=== PATIENT | male | born 1955 | race Caucasian/White ===

== ENCOUNTER 2024-01-20 17:57 | Emergency (ER) | payer MEDICARE, OTHER, SELFPAY ==
[2024-01-20 17:58] VITALS: BMI 22.5
[2024-01-20 18:00] VITALS: BP 122/80
[2024-01-20 18:25] LABS: % Basophils 0.5 % (0-2); % Eosinophils 1.7 % (0-6); % Immature Granulocytes 0.3 % (0-0.5); % Lymphocytes 31.6 % (20.5-51.1); % Monocytes 12.9 % (1.7-9.3); Absolute Eosinophils 0.1 10^3/uL (0-0.7); Absolute Lymphocytes 1.9 10^3/uL (1.2-3.4); Absolute Monocytes 0.8 10^3/uL (0.1-0.6); Absolute Neutrophils 3.2 10^3/uL (1.4-6.5); Hematocrit 38.1 % (39.0-52.0); Hemoglobin 13.4 g/dL (13.0-18.0); Mean Corp Hgb Conc. 35.2 g/dL (33.0-37.0); Mean Corpuscular Hgb 30.1 pg (27.0-31.0); Mean Corpuscular Volume 85.6 fL (80.0-94.0); Mean Platelet Volume 9.4 fL (7.4-10.4); Nucleated Red Blood Cells % 0 % (-); Platelet Count 259 10^3/uL (130-400); Red Blood Cell Count 4.45 10^6/uL (4.70-6.10); Red Cell Dist. Width 13.2 % (11.5-14.5)
[2024-01-20 18:40] LABS: Amphetamines Negative (Negative); Barbiturates Negative (Negative); Benzodiazepines Negative (Negative); Buprenorphine Negative (Negative); Cocaine Negative (Negative); Marijuana Negative (Negative); Methadone Negative (Negative); Methamphetamines Negative (Negative); Opiates Negative (Negative); Phencyclidine Negative (Negative); Tricyclic Antidepressants Negative (Negative)
[2024-01-20 18:51] LABS: ALT (SGPT) 15 U/L (0-50); AST (SGOT) 22 U/L (17-59); Albumin 4.3 g/dl (3.5-5.0); Alcohol None Detected; Alkaline Phosphatase 115 U/L (38-126); Blood Urea Nitrogen 13 mg/dl (9-20); Calcium 9.6 mg/dl (8.4-10.2); Carbon Dioxide 28 mmol/L (22-30); Chloride 92 mmol/L (98-107); Glucose 467 mg/dl (70-99); Potassium 4.9 mmol/L (3.5-5.1); Sodium 130 mmol/L (135-145); Total Bilirubin 0.5 mg/dl (0.2-1.3); Total Protein 6.8 g/dl (6.3-8.2); eGFR > 60.00
[2024-01-20 20:00] VITALS: BP 119/74
[2024-01-20] MEDS: NOVOLOG vial 12 UNITS SC (20:01)
[2024-01-20] MEDS: NSS 1000 IV (20:12)
[2024-01-20 21:07] LABS: Glucose - Point of Care 305 mg/dl (70-99)
--- NOTE | 2024-01-20 21:26 | ED.GENMED ---
History of Present Illness
General
Chief Complaint: Psychiatric Problem
Time Seen by Provider: 01/20/24 19:15
History of Present Illness
History of Present Illness:
68-year-old male with history of [id number] diabetes presents to the emergency department for evaluation of of suicidal ideation. Initially presented to [facility] due to verbalized thoughts of self-harm however due to his
uncontrolled diabetes was deferred to the emergency department for medical workup. He states to me that due to depressed thoughts lately he has contemplated 'blowing my head off with my shotgun'. He is here with his daughter and sister with whom
he has conveyed these thoughts. Patient does have some cognitive deficits and memory issues and this is apparently contributed to his poor medical compliance. He is apparently recommended to start on insulin for his diabetes but is declined,
currently managed on metformin, glimepiride, and Januvia. He also takes atorvastatin for hyperlipidemia. He was apparently admitted to the [facility] within the past month at which time he had a hemoglobin A1c of 13.7
Review of Systems
Review of Systems
Allergies reviewed?: Yes
All Other Systems: ROS reviewed and negative except as documented in HPI and ROS
Phy Exam
Physical Exam
Physical Exam:
GEN: Well appearing, NAD, WDWN
HEENT: Oral mucosa moist, no scleral icterus
Cardiac: Regular rate
Lung: No respiratory distress, no tachypnea
MSK: No gross deformity or injuries
Skin: Good color, no pallor or jaundice, no rashes
Neuro: AO x3, moves all extremities freely
Psych: Calm, cooperative
Course
Orders/Labs/Results
Orders:
Orders
01/20/24 18:06
Electrocardiogram (*1) Urgent
Reason for Study: Other
Other Reason for Exam: medical clearence
01/20/24 18:07
EKG- Treatment ONCE
01/20/24 18:19
Alcohol Urgent
Complete Blood Count/With Diff Urgent
Comprehensive Metabolic Panel Urgent
Urine Drug Abuse Screen Urgent
Date Specimen was Collected: 01/20/24
Time Specimen was Collected: 18:07
01/20/24 19:51
0.9% Sodium Chloride 1000 ml [Nss] 1,000 ml IV BOLUS
Insulin Aspart [NOVOLOG vial] 12 units SC NOW STA
01/20/24 21:00
Bedside Glucose- Treatment ONCE
01/20/24 21:09
Dextrose 50%-Water [Dextrose 50% Syringe] 12.5 grams IV [id number] PRN
Glucagon [GlucaGen] 1 mg IM PRN PRN
01/21/24 Breakfast
1800 calorie (15 carb) Diabetic
At Your Request: Full Participation
01/21/24 06:13
Glycohemoglobin (HgbA1c) IN AM
01/21/24 07:30
Insulin Aspart Corrective Low [Novolog Flexpen-Low Resistance] See Protocol SC AC
01/21/24 08:00
METFORMIN HCl [Glucophage] 1,000 mg PO BID@0800,1700
01/21/24 10:23
PSYCHIATRY CONSULT Urgent
Consulting Provider: Portia Hardy
Was physician already notified: Yes
Reason for consult: psychosis
01/21/24 12:49
Insulin Aspart [NOVOLOG vial] 5 units SC NOW STA
01/21/24 13:00
Insulin Glargine Lantus [Lantus] 12 units Subcutaneous Insulin Syringe [Syringe-Insulin] 0 unit SC DAILY
01/21/24 16:30
Insulin Regular, Human Pen [NovoLIN R Flexpen] 4 units SC AC
01/21/24 17:04
Case Management Consult ONCE
Case Management Consult: Discharge Planning
Requested By:: PHYSICIAN
Tentative Discharge Date: 01/21/24
01/21/24 17:33
Case Management Consult ONCE
Case Management Consult: Discharge Planning
Abnormal Lab Results
01/20/24 01/20/24 01/20/24
18:19 21:06 23:40
RBC 4.45 L 10^6/uL
(4.70-6.10)
Hct 38.1 L %
(39.0-52.0)
Absolute Monos (auto) 0.8 H 10^3/uL
(0.1-0.6)
Monocytes % 12.9 H %
(1.7-9.3)
Sodium 130 L mmol/L
(135-145)
Chloride 92 L mmol/L
(98-107)
Glucose 467 H* mg/dl
(70-99)
Hemoglobin A1c
POC Glucose 305 H mg/dl 181 H mg/dl
(70-99) (70-99)
01/21/24 01/21/24 01/21/24
06:13 11:06 12:48
RBC
Hct
Absolute Monos (auto)
Monocytes %
Sodium
Chloride
Glucose
Hemoglobin A1c 13.2 H %
(4.0-5.6)
POC Glucose 307 H mg/dl 326 H mg/dl
(70-99) (70-99)
01/20/24 18:19
01/20/24 18:19
Vital Signs
Initial and Last Documented VS:
Initial Vital Signs
Pulse Resp BP Pulse Ox
81 20 122/80 95
01/20/24 18:00 01/20/24 18:00 01/20/24 18:00 01/20/24 18:00
Last Documented Vital Signs
Temp Pulse Resp BP Pulse Ox
98.5 F 82 16 105/63 97
01/21/24 11:18 01/21/24 11:18 01/21/24 11:18 01/21/24 11:18 01/21/24 11:18
MDM/Problems Addressed
MDM/Problems Addressed:
Patient is medically cleared for inpatient psychiatric admission and crisis placement however due to his need for insulin and his lack of prior medical compliance, he is not suitable to be managed outside of the emergency department. Will remain in
the ER while awaiting crisis placement. Sliding scale insulin started
*Critical Care Note
Total Time (30-74mins, 75-104mins- exclusive of procedures): Not Applicable
ED Attending Note
-
Portions of this chart may have been created with voice recognition software.� Occasional wrong word or��sound alike� substitutions may have occurred due to the inherent limitations of voice recognition software.
Discharge Plan
Departure
Patient Disposition: Psych Facility
Date of Disposition: 01/20/24
Time of Disposition: 21:26
Discharge Problem:
Depression with suicidal ideation, Uncontrolled diabetes mellitus
Prescriptions:
No Action
No Current Medications
0
Rx Instructions:
the pt refuses to take any prescriptions medications, provider notified
Referrals:
Samson Borges MD [Family Provider] -
Interventions
Interventions:
*Risk Screen - Suicide Last Done: 01/20/24 18:00
*General Assessment Last Done: 01/20/24 18:00
*Neglect/Abuse Screening Last Done: 01/20/24 18:00
ED- Fall Risk Assessment Last Done: 01/20/24 23:04
*ED COVID-19 Vaccine History Last Done: 01/21/24 09:35
ED-Psychological Assessment Last Done: 01/20/24 23:04
Discharge Date and Time
Print Language: WALLISIAN
[2024-01-20 23:05] VITALS: BP 100/67
[2024-01-20] MEDS: NOVOLOG FLEXPEN-LOW RESISTANCE 1 UNITS SC (23:41)
[2024-01-20 23:48] LABS: Glucose - Point of Care 181 mg/dl (70-99)
[2024-01-21 06:31] VITALS: BP 107/70
--- NOTE | 2024-01-21 08:52 | EDRN ---
the pts breakfast arrived and this RN brought the pt his breakfast, the pt was sleeping however this RN woke the pt up be stating that hsi breakfast was here, the pt told the hourly shift manager RN that he wanted to be woken up when his breakfast arrived,
the pt stated, 'Just put it on the table and put my side rail down i want to sit on the side of the bed', this RN put the pts side rail down and waited for the pt to sit on the side of the bed, the pt then stated, 'What are you doing i don't want
that put it over my legs, i am not getting out of bed right now, i am staying in bed to eat my breakfast', this RN apologized to the pt however this RN stated that this RN was just doing what the pt asked, the pt then stated to this RN, 'Just do
what i said and get out, i don't want you in here', this RN asked the pt if this RN could check his blood sugar before he ate so that this RN could see if the pt needed insulin or not, the pt then stated, 'Just get the fuck out, i don't need insulin
and i don't need the rest of the shit you people try to poison me with', this RN attempted to explain to the pt that medication compliance was important for the pts overall health and the pt stated to this RN, 'I said get out, i don't have to take
it and i won't take it, my blood sugar is fine, i don't check my blood sugars at home and i am not checking them here', the pt then proceeded to throw an empty cup across the room, the provider Dr. Moore was notified, this RN provided the pt his
breakfast on the breakfast tray so that he could stay in bed and eat, no s/s of distress, this RN notified security that the pt was upset and irritated and asked security to come by to speak to the pt about speaking to staff appropriately and
respectfully and the pt was notified that aggressions toward staff that aggression is not tolerated, the pt refused to allow this RN to take the pts vital signs again, will continue to monitor the pt closely
--- NOTE | 2024-01-21 09:31 | EDRN ---
the pts daughter was brought back to the nurses station for an update on the pt, this RN updated the pts daughter, the pt is running down to the cafateria then coming back to the pts room
[2024-01-21] MEDS: GLUCOPHAGE PO (09:32)
--- NOTE | 2024-01-21 09:32 | EDRN ---
the pt refused AM medications, provider notified
--- NOTE | 2024-01-21 09:34 | EDRN ---
Dr. Moore currently at the pts bedside speaking with the pt regarding blood sugar checks and taking medications as prescribed
--- NOTE | 2024-01-21 09:35 | EDRN ---
the pt stated to Dr. Moore that after he was done his breakfast he would allow this RN to check his blood sugar
--- NOTE | 2024-01-21 10:17 | EDRN ---
crisis called this RN and asked this RN if a psychiatry consult was going to be placed for the pt, crisis stated that they spoke to someone last night and they were going to put a psychiatry consult in for today, this RN will notify Dr. Moore
--- NOTE | 2024-01-21 10:23 | EDRN ---
this RN spoke with Dr. Moore and a Psychiatry consult was placed for psychosis, this RN notified crisis
[2024-01-21 11:07] LABS: Glucose - Point of Care 307 mg/dl (70-99)
--- NOTE | 2024-01-21 11:08 | EDRN ---
the pts blood sugar was 307, Dr. Moore notified
[2024-01-21 11:15] VITALS: BP 105/63
[2024-01-21 11:18] VITALS: BP 105/63
--- NOTE | 2024-01-21 11:19 | EDRN ---
the pt pressed the call cornejo and this RN entered the pts room, the pt asked this RN to lower the head of his bed, this RN lowered the pts HOB to his liking, this RN asked the pt if he would be agreeable to this RN taking his vital signs and the pt
was agreeable to this, the pt is calm, pleasant, and cooperative, while this RN was taking the pts vital signs the pts daughter stated, 'He isn't here for a blood pressure problem he is here for diabetes and psych issues', this RN notified the pts
daughter that this RN was aware of that and that although that may be the case, this RN still has to check the pts vital signs during his stay here in the hospital, the pts daughter stated, 'Okay i was just letting you know because i just don't know
what his blood pressure has to do with the issues he is having here', this RN again educated the pts daughter that it is standard practice to check patients vital signs while they are in the hospital and this RN notified the pts daughter that this
RN was aware of the reasoning for the pt being here in the hospital, the pts daughter also asked when a psychiatrist was going to evaluate the pt, this RN notified crisis, the pt is currently resting in stretcher in the lowest position, side rails
up x1, HOB lower than before, and call cornejo within reach, this RN asked the pt if he would be okay with letting this RN know when he orders his lunch and this RN asked the pt if it would be okay if this RN checks his blood sugar before he eats his
lunch to see if he need insulin, the pt stated that he was okay with that, this RN offered the pts his AM dose of Glucophage again and the pt refused, will continue to monitor the pt closely
[2024-01-21 11:53] LABS: Glycohemoglobin (HgbA1c) 13.2 % (4.0-5.6)
--- NOTE | 2024-01-21 12:36 | EDRN ---
the pts daughter came out of the pts room and approached this RN at the nurses station, the pts daughter was asking if there was a bathroom that she could use, this RN notified the pts daughter that there is a bathroom in the pts room and that she
could use that, the pts daughter also notified this RN that the pt is ordering lunch now, will continue to monitor the pt closely
[2024-01-21 12:49] LABS: Glucose - Point of Care 326 mg/dl (70-99)
[2024-01-21] MEDS: NOVOLOG FLEXPEN-LOW RESISTANCE 4 UNITS SC ×2 (12:51→18:04)
--- NOTE | 2024-01-21 12:53 | ED.CRISIS ---
ED Crisis Note
ED Crisis Note
Subjective:
Pt calm but not cooperative at times with accu-check and taking meds.
No complaints at present
Objective:
Very thin. Calm
Assessment/Plan:
Discussed a treatment regimen with [employer]....we will start 12 units of Lantus a day and low correction. She is happy to review pt's response to this regimen tomorrow
Awaiting placement
--- NOTE | 2024-01-21 12:56 | EDRN ---
this RN entered the pts room and this RN asked the pt if he would be okay with this RN checking his blood sugar, the pt was agreeable to this, the pt is being calm, cooperative, and pleasant, due to the pts blood sugar the pt required coverage
before eating, the pt was agreeable to this, this RN administered coverage insulin and the pt tolerated, Dr. Moore had put a one time order in for 5 units of Novolog however this RN notified him that a sliding scale had been ordered, 5 units
Novolog order was discontinued and Dr. Moore ordered long acting insulin for the pt, this RN notified the pt and the pts daughter, the pt is agreeable to taking long acting insulin, Dr. Moore notified this RN to sign out to date night caregiver that
Elizabeth the certified lactation educator stated to him that if she is here tomorrow she will evaluate the pt, will continue to monitor the pt closely
--- NOTE | 2024-01-21 12:59 | EDRN ---
this RN called pharmacy to send the Lantus to this RN to administer to the pt
[2024-01-21] MEDS: LANTUS 0.12 UNITS SC (13:15)
--- NOTE | 2024-01-21 13:16 | EDRN ---
this RN administered Lantus and the pt tolerated it well
--- NOTE | 2024-01-21 13:41 | EDRN ---
psychiatrist is currently at the pts bedside speaking with the pt and the pts daughter
--- NOTE | 2024-01-21 14:00 | EDRN ---
the pt pressed the call cornejo and stated that he wanted the rest of his lunch heated up, the PCT Caridad heated up his lunch
--- NOTE | 2024-01-21 14:09 | EDRN ---
the pt pressed the call cornejo and PCT Bahman entered the pts room, the pt stated that he wanted a diet soda, diet latisha julien was provider for the pt, the pt denies needing anything else at this time, will continue to monitor the pt closely
--- NOTE | 2024-01-21 15:27 | CON.MD ---
Consultation - Medical
-
68 yo male, initially presented to crisis at the behest of his daughter (who accompanies him) for concerns of depression and his making suicidal statements. The patient did admit to cellar worker that he at times has passive thoughts of not wanting
to wake up, and that he has had time of thinking of 'shooting myself' but denied having any intention to do so and expressed that these were just thoughts he has when he is feeling down. He does have a gun in the home which he has had for many
years.
Pt was later seen in the ER for management of his DMT2 - HgA1c 13.1, started on Lantus. Psychiatry consulted as daughter reports ongoing concerns about pt's mental health.
Spoke to daughter alone initially with pt verbal consent - she reports that he has been gradually cognitively declining for some time - was put on donepezil at one point, though does not seem to be taking it nor is daughter aware of the type of
dementia he was suspected to have. She also reports long hx of hoarding, which is affecting his living conditions - says he has fridge full of food, and boxes and items lined to ceiling all over apartment. She reports that he has been
depressed and making statements of not wanting to wake up in the morning. She does note that he has a shotgun which he had for many years that she thought was an antique, however yesterday when she asked him about it he said it does work and became
upset with her line of questioning. She does also note that passive statements started a few weeks ago. To note, he has been hospitalized medically 3 times in past 12 weeks for DM due to poor med compliance and lack of self care.
Pts daughter also reports that he told her he is not eating much due to lack of access from hoarding (and possibly cognitive issues preventing his buying or using the appropriate groceries). She notes as well that he has not been attending to his
hygiene - has been increasingly more malodorous and not washing his clothing (which may likely be due to difficulty accessing shower and laundry). He did have someone from [facility] come to the home several times and evaluate his
conditions - is currently on a waiting list for the [facility] hoarding program which offers treatment and support services. He was hoping to start an outpatient program called [facility] but was denied because staff was unable to
access home easily and he is required to remove the boxes in the entry way prior to staff entering (though does not seem that they offered any help with achieving this).
Spoke to pt one on one and then with daughter present. He admits to feeling depressed, in particular since his 3.5 yrs ago - says some days are better than others. Admits to passive thoughts at times and admits to statement he told
crisis about shooting self, however says these are fleeting thoughts and he would never consider this seriously - 'that's life, you can't just give up like that! you just keep going and hope that things eventually get better'. Future oriented to
being there for his daughter and rest of family, also future oriented to starting an outpatient program as he did find therapy immensely helpful when he was younger. He admits that he is eating poorly because of inability to cook, so options are
limited (noted to struggle trying to name what he eats when home). Also admits to difficulty with self care, partially likely due to difficulty with accessing parts of home (and quite possibly partially due to depression).
Difficult to clearly gauge extent of cognitive difficulties due to his becoming irritable when asked more than a few questions - he does understand his having DMT2 and that his current metformin is not adequate, however has difficulty discussing
other options without becoming irritable.
MSE: male, fair eye contact, somewhat cooperative. Mood is OK, affect is at times irritable. Denies SI/HI/AVH/delusions. Thought process is perseverative at times. Oriented to name however too irritable to orient further. Insight/judgement moderate
- certain aspects of insight, in particular, poor relating to hoarding, otherwise.
Suspected hoarding d/o
Unspecified depression
Pt agreeable to voluntary inpatient admission for stabilization - bed search pending
- while his hoarding is a chronic issue best managed on an outpatient basis, it does seem that over past several months he has been more depressed than previously, worsening ADLs, worsening intake.Unclear baseline of cognition, however given pt
presenting with what appears to be worsening depression, suspect that his depression is contributing to his worsening ADLs and current inability to adequately care for himself. He is not open to medication at this time so would defer medication
trial for the time being
--- NOTE | 2024-01-21 15:33 | EDRN ---
the pts daughter came out to the nurses station and approached this RN, the pts daughter stated, 'I am getting frustrated with him so i feel that it is best that i leave', this RN stated to the pts daughter that is is okay to go home and this RN
also asked the pts daughter when the last time the pt saw his PCP was, the pts daughter stated that he last saw his PCP a month ago however the pts daughter stated, 'I have been through this with them, i told them he needs to be in assisted living',
this RN notified crisis who will speak to the psychiatrist
--- NOTE | 2024-01-21 15:46 | CM ---
CM reviewed medical records. CM spoke with long term care social worker and offered home care for management of patient's diabetes. CM spoke with patient and he stated that he feels that he is not ready for discharge and he is 'going to rehab'. He was agreeable
to home care, but he stated that he's not ready for discharge.
CM updated crisis.
--- NOTE | 2024-01-21 16:26 | EDRN ---
the pt came out of ED Bed #9 and approached this RN at the nurses station, the pt stated to this RN, 'Can you help me? I am in room #9 right? I am on the phone with the kitchen and they're saying that they can't give me a lunch tray', this RN
entered the pts room and picked up the phone to speak to the kitchen, this RN confirmed that the pt is in ED Bed #9 and restated and spelled the pts name and they were able to find the pt in the system and the pt was able to order his lunch, will
continue to monitor the pt closely
--- NOTE | 2024-01-21 16:57 | EDRN ---
psychiatrist currently at the pts bedside speaking with the pt
--- NOTE | 2024-01-21 17:06 | EDRN ---
the psychiatrist came out of the pts room and notified this RN that the pt stated that he didn't want to go home and Dr. Hardy notified the pt and this RN that the pt is cleared psych mcnally, the pt stated to the psychiatrist, 'I don't want to go
home i want to go to a residential', the psychiatrist stated to this RN to place an order for a case management consult, the assistant case manager Alayna stated that she would call the pts daughter and discuss the options for the pt, and the psychiatrist is
also going to call the pts daughter, will continue to monitor the pt closely
--- NOTE | 2024-01-21 17:23 | CM ---
CM was consulted for assistance with disposition. As per psychiatry, patient is ready for discharge. Patient has told nurse that he wants to go to rehab. Also, as per daughter, she wants him placed in SNF. Patient disposition to SNF would be
complicated by psychiatric history and payment options. Patient does have a home that he can return to, but he has had challenges with hoarding. As per psychiatry, patient has been connected with APS and patient reports that he is on a waiting list
for assistance. Patient is also refusing to take insulin.
Plan for home discharge with VN. CM sent referral via [facility] to [facility] care. CM will place call to protective services to follow up with home discharge plan.
--- NOTE | 2024-01-21 17:30 | EDRN ---
Alayna from case management is currently still working on the pts case, the pts daughter called to speak with this RN and the pts daughter stated to this RN, 'I can't believe they want to sent him home and can't help him, he needs to be taken care
of, he doesn't given himself medications because he won't stick himself with a needle, I can't let him go home alone, he won't give himself his medications, and now he is saying that she doesn't want to go home either', this RN explained to the pts
daughter that Alayna from case management was working on the pts case and will follow up with her
[2024-01-21 17:58] VITALS: BMI 22.7
[2024-01-21 18:02] LABS: Glucose - Point of Care 335 mg/dl (70-99)
[2024-01-21] MEDS: GLUCOPHAGE 1000 MG PO (18:09)
--- NOTE | 2024-01-21 18:12 | EDRN ---
case management and psychiatry are currently at the pts bedside speaking with the pt
--- NOTE | 2024-01-21 18:14 | EDRN ---
Case management is on the phone with the pts daughter
--- NOTE | 2024-01-21 18:14 | EDRN ---
the pt was compliant with this RN checking his blood sugar, he was compliant with administering his insulin before his dinner and he was compliant with taking glucophage, the pt is now resting in stretcher in the lowest position, side rails up x1,
HOB elevated, no s/s of distress, the pt is eating his dinner, the pt stated to this RN, 'I could never stick myself with a needle i could just never do it', will continue to monitor the pt closely
[2024-01-21 18:15] VITALS: BP 137/71
--- NOTE | 2024-01-21 18:16 | EDRN ---
Alayna from case management approached this RN and updated this RN and stated that the pt and the pts daughter are agreeable to inpatient psych on a 201 and crisis will be taking over
--- NOTE | 2024-01-21 18:24 | CM ---
Addendum entered by Alayna Qureshi RN 01/21/24 18:32:
CM updated beef cattle farm worker that patient's daughter would prefer [facility]. But she would be agreeable to [facility]. She stated that she had a bad experience at [facility] but would be agreeable if no
other bed was found.
Original Note:
CM spoke with crisis regarding disposition efforts. CM spoke with patient's daughter at length regarding her concerns and patient's history of self neglect over the last 10 months. Daughter stated that she believes that her father is agreeable to
inpatient psychiatric placement . Patient's daughter was reluctant to sign a 302 because she felt it was 'too aggressive' and did not want to upset her father. CM advised that she may have to sign a 302 if patient refuses. Patient daughter did
express understanding.
CM met with patient in room with psychiatrist. Patient expressed that he would agreeable to inpatient psychiatric placement, but wanted to speak to his daughter first. CM advised that this CM spoke with his daughter at length and she was working on
calling different facilities for placement. Patient understood and she stated that 'if my daughter thinks it's a good idea, I'll go get help'.
CM updated crisis. CM updated daughter that crisis will look for a bed. Patient's daughter was tearful but expressed relief. She did state that she was willing to sign a 302 if needed.
CM updated bedside RN.
--- NOTE | 2024-01-22 07:03 | EDRN ---
the pt was received from previous client delivery manager RN, the pt is currently sleeping in stretcher in the lowest position, side rails up x1, HOB elevated, call cornejo within reach, no s/s of distress, per crisis, before the pt gets transferred a blood sugar
is to be performed, will continue to monitor the pt closely
[2024-01-22 07:10] VITALS: BP 141/82
[2024-01-22 08:01] LABS: Glucose - Point of Care 227 mg/dl (70-99)
--- NOTE | 2024-01-22 08:20 | EDRN ---
the pt gave this RN his breakfast order and this RN called the kitchen and ordered it
--- NOTE | 2024-01-22 08:44 | EDRN ---
the pt pressed the call cornejo and this RN and PCT Isa entered the pts room, the pt was found on the phone with the kitchen and the pt was asking if he could have a cup of coffee, this RN stated to the pt that this RN already ordered his breakfast
and that the kitchen would deliver his breakfast around 9am, will continue to monitor the pt closely
--- NOTE | 2024-01-22 09:07 | EDRN ---
Alayna from case management and crisis notified this RN that the pts daughter called and is 'infuriated' that crisis didn't call her to tell her that placement was found for the pt at [facility], this RN called crisis and crisis notified this RN that
placement was found at 2039 last night on 01/22/2024, this RN called the daughter and the pts daughter picked up the phone and stated that she was on her way to the hospital and was confused why she was told the possible placement facilities were
[facility], [place], or [facility], but didn't understand why the pt was being placed in [facility], the pts daughter wants to know why he wasn't placed at one of the three options and why he was being placed at [facility] and
wants to know if crisis tried the three options first, the pts daughter stated, 'I am on my way to advocate for him, crisis never called me last night to confirm anything with me and i was never told anything about [facility] and i just don't understand
why he was going to be placed there, please cancel the transport i don't want him going there, i want to speak to you, ori, and Alayna, i will be there shortly', this RN assured the pts daughter that the situation would be handled
[2024-01-22] MEDS: NOVOLOG FLEXPEN-LOW RESISTANCE 2 UNITS SC (09:26)
[2024-01-22] MEDS: GLUCOPHAGE 1000 MG PO ×2 (09:27→18:07)
--- NOTE | 2024-01-22 09:29 | EDRN ---
the pts breakfast arrived, the pt was agreeable to taking his insulin and oral glucophage, the pt was able to take oral medication with no issues, the pts daughter has arrived and is sitting at the pts bedside asking to speak to the business case analyst
Alayna and ori, this RN notified them
--- NOTE | 2024-01-22 09:30 | EDRN ---
this RN attempted to give the pts Lantus and the pt stated that he wasn't ready yet, this RN notified the provider Dr. William
--- NOTE | 2024-01-22 09:38 | EDRN ---
the pt pressed the call cornejo and told this RN, 'First of all i didn't get a fork or knife so i'm going to need that and all of this food is ice cold so i need it heated up', the pt was provided with a fork and the pts breakfast was heated up
--- NOTE | 2024-01-22 09:41 | EDRN ---
Velvet from crisis is currently at the pts bedside speaking with the pt and the pts daughter
--- NOTE | 2024-01-22 10:00 | EDRN ---
this RN entered the pts room again to attempt to given Lantus and the pt refused it, provider notified
--- NOTE | 2024-01-22 10:03 | EDRN ---
Alayna from case management is speaking with the pts daughter
--- NOTE | 2024-01-22 10:25 | ED.CRISIS ---
ED Crisis Note
ED Crisis Note
Subjective:
Patient with no acute medical complaints. Some chronic tingling in his digits likely diabetic neuropathy. However denies chest pain shortness of breath or other complaints
Objective:
Nontoxic no distress. Warm and dry. Perfusing well. Speech normal. Cooperative.
Assessment/Plan:
Blood sugar monitoring diabetic management await placement. Patient is stable at this time
--- NOTE | 2024-01-22 11:11 | EDRN ---
Velvet from crisis is currently at the pts bedside speaking to the pts daughter and the pt
--- NOTE | 2024-01-22 12:40 | CM ---
Addendum entered by Alayna Qureshi RN 01/22/24 16:02:
CM received call from patient's daughter asking for an updated. CM confirmed via daughter that crisis is has updated her that there will be a continued bed search for inpatient psychiatry. CM offered emotional support. CM further expressed that
daughter should pursue Power of Auto Body Service Mechanic for Health Care decisions as patient's functional status may decline further. Daughter expressed understanding.
Addendum entered by Alayna Qureshi RN 01/22/24 13:37:
CM was updated by Velvet that [facility] does not have any bed availability.
Addendum entered by Alayna Qureshi RN 01/22/24 13:14:
CM and postal worker Velvet spoke with patient and daughter. CM updated that [facility] and [facility] do not have bed availability at this time. Patient's daughter is still refusing [facility] as she believes since they are in [facility]
they would not be able to coordinate resources in [facility]. CM explained that psychiatric hospitals discharge planning is well versed in resources in the surrounding counties. Patient also expressed that he does not want to go into
[facility].
Patient's daughter is requesting another evaluation by psychiatry in the effort to comment on patient's suicide risk so that a bed at [facility] would be available on a less secure floor. Daughter believes that if patient is placed in a 'code
red' bed that patient is not going to cooperate with care.
Velvet from [facility] will consult psychiatry for another evaluation.
Addendum entered by Alayna Qureshi RN 01/22/24 12:47:
CM was contacted by Velvet at [facility] requesting that CM speak to daughter about placement options. [facility] was unable to accept patient they did not have an appropriate bed for him today as he has expressed suicidal ideations. CM spoke with
daughter who stated she would like another psychiatric evaluation regarding patient's suicide risk. Daughter feels that patient will escalate if he is in a restrictive environment. CM advised that psychiatric facilities are responsible for patient's
safety and a reevaluation by psychiatry may not change their decision. Patient's daughter understands and expressed that she would be agreeable to [facility].
CM updated crisis with patient's daughter's preferences.
Original Note:
CM was updated that patient has been accepted to [facility]. As per daughter, she was not updated on transfer that was scheduled for this morning. Daughter expressed that she had the understanding that a bed search would be conducted
with the preferences for [facility].
CM spoke with daughter who stated that she does not want him going to [facility]. She stated that she would assist with placement efforts as needed. Daughter stated that she feels that patient's mental health has not been addressed sufficiently and she
is having a frustrating time 'navigating a crappy system'. CM provided emotional support and advised that crisis will be working on placement.
--- NOTE | 2024-01-22 13:00 | EDRN ---
Velvet from crisis and Alayna from case management currently at the pts bedside speaking with the pt and the pts daughter
[2024-01-22 13:28] LABS: Glucose - Point of Care 303 mg/dl (70-99)
[2024-01-22] MEDS: NOVOLOG FLEXPEN-LOW RESISTANCE 4 UNITS SC ×2 (13:32→18:07)
[2024-01-22] MEDS: LANTUS SC (13:34)
--- NOTE | 2024-01-22 14:36 | W.PN.UPDATE ---
Update Note
Progress Note Update
Chart reviewed/ pt seen.
68 yr old white male who has been feeling depressed off and on, came in to [facility] yesterday and agreed to a psychiatric admission. He thinks about suicide, and says 'Sometimes I think I'd be better off .' His main c/o is that he is sick
of sticking himself with neeedles for the twice daily insulin shots.
Crisis team is actively searching for a [facility] bed for him.
MSE today- alert, O x 3, thin white male. Cooperative with interview. A bit irritable at times. He denies severe depressed feelings but does admit to intermittent thoughts of suicide. Has a firearm at home. No psychosis. No hallucinations.
Insight and judgment fair.
He has never had a trial of an antidepressant. Would consider starting him on low dose Mirtazapine -15 mg.
Will follow.
[2024-01-22 15:53] VITALS: BP 111/74
[2024-01-22 18:07] LABS: Glucose - Point of Care 312 mg/dl (70-99)
[2024-01-23 09:10] LABS: Glucose - Point of Care 260 mg/dl (70-99)
[2024-01-23] MEDS: GLUCOPHAGE 1000 MG PO ×2 (09:19→18:12)
[2024-01-23] MEDS: NOVOLOG FLEXPEN-LOW RESISTANCE 2 UNITS SC (09:20)
[2024-01-23] MEDS: LANTUS 0.12 UNITS SC (10:42)
[2024-01-23 12:56] LABS: Glucose - Point of Care 280 mg/dl (70-99)
[2024-01-23] MEDS: NOVOLOG FLEXPEN-LOW RESISTANCE 4 UNITS SC (13:30)
[2024-01-23 16:55] VITALS: BP 134/85
[2024-01-23 17:57] LABS: Glucose - Point of Care 271 mg/dl (70-99)
[2024-01-23] MEDS: NOVOLOG FLEXPEN-LOW RESISTANCE 3 UNITS SC (18:12)
== END 2024-01-23 19:17 ==
LOC: EMR 17:57
PROVIDERS: Emergency Medicine; Physician Assistant; CONSULT PHYSICIAN Psychiatry & Neurology Psychiatry; EMERGENCY PHYSICIAN Emergency Medicine; FAMILY PHYSICIAN Internal Medicine
DX: R45.851 Suicidal ideations (principal); F32.A Depression, unspecified; E11.69 Type 2 diabetes mellitus with other specified complication
CPT/HCPCS: 99284; 96360; 96372 ×3; 80053; 80306; 82077; 82962; 83036; 85025; 93005